=== PATIENT | male | born 1990 | race American Indian/Alaskan Native ===

== ENCOUNTER 2016-10-23 20:56 | Emergency (ER) | payer MEDICAID, OTHER ==
[2016-10-23 21:11] VITALS: BP 125/78
--- NOTE | 2016-10-23 22:15 | EDM.PDOC ---
ED HISTORY OF PRESENT ILLNESS - General Chief Complaint: Chest Pain Stated Complaint: SHARP CHEST PAIN,RIGHT ARM NUMB [phone] Time Seen by Provider: 10/23/16 22:00 Source of Information: Reports: Patient History Limitations: Reports: No limitations - History of Present Illness INITIAL COMMENTS - FREE TEXT/NARRATIVE: This 25 yo male patient reports to the ED with chest pain that started at about 1900 tonight. The patient reports most of his pain was in the left side of his chest. The patient reports his pain is gone at the time of examination. The patient reports he has been drinking a lot of coffee today and was also anxious about the pains and coming to a hospital. Symptom Onset Date: 10/23/16 Symptom Onset Time: 19:00 Timing/Duration: Reports: Resolved prior to arrival Severity: moderate Location, General: Reports: chest (right sided chest pain) Quality: Reports: Ache, Dull Improves with: Reports: Rest Worsens with: Reports: Breathing Associated Symptoms (General): Reports: no other symptoms - Related Data Allergies/ADRs: Allergies Allergy/AdvReac Type Severity Reaction Status Date / Time No Known Allergies Allergy Verified 10/23/16 21:58 Home Meds: Home Meds . [No Known Home Meds] 10/23/16 [History] Past Medical History - Past Health History Medical/Surgical History: Denies Medical/Surgical History Social & Family History - Tobacco Use Smoking Status *Q: Current Every Day Smoker Years of Tobacco use: 10 Packs/Tins Daily: 10 - Caffeine Use Caffeine Use: Reports: Coffee, Soda, Tea - Recreational Drug Use Recreational Drug Use: No ED ROS GENERAL - Review of Systems Review Of Systems: ROS reveals no pertinent complaints other than HPI. ED EXAM, GENERAL - Physical Exam Exam: See Below Exam Limited By: No limitations General Appearance: alert, WD/WN, mild distress Eye Exam: bilateral eye: EOMI, normal inspection, PERRL Ears: normal external exam, normal canal, hearing grossly normal, normal TMs Nose: normal inspection, normal mucosa, no blood Throat/Mouth: Normal inspection, Normal lips, Normal teeth, Normal gums, Normal oropharynx, Normal voice, No airway compromise Head: atraumatic, normocephalic Neck: normal inspection, supple, non-tender, full range of motion Respiratory/Chest: no respiratory distress, lungs clear, normal breath sounds, no accessory muscle use, chest non-tender Cardiovascular: normal peripheral pulses, regular rate, rhythm, no edema, no gallop, no JVD, no murmur, no rub GI/Abdominal: normal bowel sounds, soft, non tender, no organomegaly, no distention, no abnormal bruit, no mass (Male) Exam: Deferred Rectal (Males) Exam: Deferred Back Exam: normal inspection, full range of motion, NT Extremities: normal inspection, normal range of motion, non-tender, normal capillary refill, no pedal edema Neurological: alert, oriented, CN II-XII intact, normal cognition, normal gait, normal reflexes, no motor/sensory deficits Psychiatric: normal affect, anxious Skin Exam: Warm, Dry, Intact, Normal color, No rash Lymphatic: no adenopathy Course - Vital Signs Last Recorded V/S: Last Vital Signs Temp 37.1 C 10/23/16 21:04 Pulse 118 H 10/23/16 21:04 Resp 21 H 10/23/16 21:04 BP 125/78 10/23/16 21:04 Pulse Ox 100 10/23/16 21:04 - Orders/Labs/Meds Orders: Active Orders 24 hr Category Date Time Status EKG 12 Lead [EKG Documentation Completion] [RC] URGENT Care 10/23/16 21:12 Active CMP [COMPREHENSIVE METABOLIC PN,CMP] [CHEM] Stat Lab 10/23/16 21:58 Ordered UA W/MICROSCOPIC [URIN] Stat Lab 10/23/16 21:58 Ordered Labs: Laboratory Tests 10/23/16 10/23/16 10/23/16 Range/Units 21:12 21:12 21:13 WBC 9.9 (5.0-10.0) 10^3/uL RBC 5.23 (4.6-6.2) 10^6/uL Hgb 15.1 (14.0-18.0) g/dL Hct 44.4 (40.0-54.0) % MCV 84.9 (80-100) fL MCH 28.9 (27.0-34.0) pg MCHC 34.0 (33.0-35.0) g/dL Plt Count 299 (150-450) 10^3/uL Neut % (Auto) 70.4 (42.2-75.2) % Lymph % (Auto) 21.7 (20.5-50.1) % Mccone % (Auto) 6.3 (2-8) % Eos % (Auto) 1.4 (1.0-3.0) % Baso % (Auto) 0.2 (0.0-1.0) % Troponin I < 0.02 (0.00-0.02) ng/ml Urine Opiates Screen Negative (NEGATIVE) Ur Oxycodone Screen Negative (NEGATIVE) Urine Methadone Screen Negative (NEGATIVE) Ur Barbiturates Screen Negative (NEGATIVE) U Tricyclic Antidepress Positive H (NEGATIVE) Ur Phencyclidine Scrn Negative (NEGATIVE) Ur Amphetamine Screen Negative (NEGATIVE) U Methamphetamines Scrn Negative (NEGATIVE) Urine MDMA Screen Negative (NEGATIVE) U Benzodiazepines Scrn Negative (NEGATIVE) Urine Cocaine Screen Negative (NEGATIVE) U Marijuana (THC) Screen Negative (NEGATIVE) Departure - Departure Time of Disposition: 22:12 Disposition: Home, Self-Care 01 Condition: fair Clinical Impression: Non-cardiac chest pain, Anxiety Instructions: Nonspecific Chest Pain, [id number] Forms: ED Department Discharge Care Plan Goals: The patient was advised of the examination, lab and EKG results during the visit. The patient was encouraged to avoid stimulant use (caffeine). If the patient has any additional symptoms or concerns, the patient should follow-up with his primary care facility or return to the emergency department. - My Orders Last 24 Hours: My Active Orders 10/23/16 21:12 EKG 12 Lead [EKG Documentation Completion] [RC] URGENT 10/23/16 21:58 CMP [COMPREHENSIVE METABOLIC PN,CMP] [CHEM] Stat UA W/MICROSCOPIC [URIN] Stat - Assessment/Plan Last 24 Hours: My Active Orders 10/23/16 21:12 EKG 12 Lead [EKG Documentation Completion] [RC] URGENT 10/23/16 21:58 CMP [COMPREHENSIVE METABOLIC PN,CMP] [CHEM] Stat UA W/MICROSCOPIC [URIN] Stat
[2016-10-23 22:18] LABS: CHLORIDE,CL 104 mmol/L (101-111); SODIUM,NA 140 mmol/L (135-145)
--- NOTE | 2016-11-01 10:01 | EKG ---
10/23/2016 - JENIFFER MENDEZ S - TIME: 2104 hours. EKG is sinus rhythm with a rate of 104. Normal TX interval. Normal axis. EKG otherwise within normal limits. [facility] /[id number]
== END 2016-10-23 22:21 | disposition home or self-care (01) ==
LOC: DL.ED 20:56
DX: R07.89 Other chest pain (principal); F41.9 Anxiety disorder, unspecified; F17.210 Nicotine dependence, cigarettes, uncomplicated
CPT/HCPCS: 36415; 80053; 80305; 81001; 84484; 85025; 93005; 93010; 99283; 99285